=== PATIENT | female | born 1935 | race Caucasian/White ===

== ENCOUNTER 2019-09-15 05:04 | Emergency (ER) | payer SELFPAY ==
[~2019-09-15] VITALS: Ht 149.9 cm; Wt 65.8 kg
[2019-09-15 05:19] VITALS: Ht 149.9 cm; Wt 65.8 kg
[2019-09-15 06:29] LABS: CALCIUM 9.2 mg/dL (8.5-10.1); CARBON DIOXIDE 28.3 mmol/L (21-32); CHLORIDE SERUM 103 mmol/L (98-107); GLUCOSE SERUM 120 mg/dL (74-106); POTASSIUM SERUM 4.1 mmol/L (3.5-5.1); SODIUM SERUM 140 mmol/L (136-145)
[2019-09-15 06:54] LABS: BASOPHIL % 0.1 % (0-2); PLATELET COUNT 185 x10^3mcL (130-400); RED CELL DISTRIBUTION WIDTH 11.9 % (11.5-14.5)
[2019-09-15 07:40] LABS: microscopic required? YES; urine erythrocyte TRACE (NEGATIVE)
[2019-09-15 08:09] VITALS: BP 115/85
== END 2019-09-15 08:09 | disposition home or self-care (01) ==
LOC: ED 05:04
PROVIDERS: Emergency Medicine
DX: R42 Dizziness and giddiness (principal); R11.0 Nausea; I10 Essential (primary) hypertension; E11.9 Type 2 diabetes mellitus without complications
CPT/HCPCS: 82962; J3490; Q0092